=== PATIENT | male | born 1955 | race Caucasian/White ===

== ENCOUNTER 2020-05-08 14:19 | Emergency (ER) | payer OTHER ==
[~2020-05-08] VITALS: Ht 170.2 cm; Wt 83.9 kg
[2020-05-08 14:23] VITALS: BP 149/89
[2020-05-08] MEDS ORDERED: LIDOCAINE MPF 1% 10 MG/ML VIAL INJ ONE ×2 (15:00→15:30)
[2020-05-08] MEDS ORDERED: KETOROLAC 30 MG/ML VIAL IM ONE (15:00)
[2020-05-08] MEDS ORDERED: cefTRIAXone 1,000 MG in LIDOCAINE MPF 1% 2.1 ML IM ONE (15:00)
[2020-05-08] MEDS ORDERED: LIDOCAINE MPF 1% 5 ML ONE (15:09)
[2020-05-08] MEDS ORDERED: cefTRIAXone 1,000 MG VIAL ONE (15:09)
[2020-05-08] MEDS ORDERED: BACITRACIN OINT 500 UNITS/GM PKT TP ONE (15:45)
[2020-05-08 16:02] VITALS: BP 149/89
== END 2020-05-08 16:02 | disposition home or self-care (01) ==
LOC: MED 14:19
DX: S62.634A Displaced fracture of distal phalanx of right ring finger, initial encounter for closed fracture (principal); I10 Essential (primary) hypertension; W22.03XA Walked into furniture, initial encounter; Y93.89 Activity, other specified; Y92.89 Other specified places as the place of occurrence of the external cause; Y99.8 Other external cause status
CPT/HCPCS: 12001; 73140; 90471; 90715; 96372; 99284; J0696; J1885; J2001; Q0092